=== PATIENT | female | born 1955 | race Caucasian/White ===

== ENCOUNTER 2021-04-22 13:03 | Outpatient (RCR) | payer MEDICARE | END 2021-04-24 | LOC: PT 13:03 | PROVIDERS: ATTEND Physical Medicine & Rehabilitation | DX: M46.1 Sacroiliitis, not elsewhere classified (principal); M25.551 Pain in right hip ==

== ENCOUNTER 2021-05-05 11:00 | Outpatient (RCR) | payer MEDICARE | END 2021-05-25 | LOC: PT 11:00 | PROVIDERS: ATTEND Physical Medicine & Rehabilitation | DX: M46.1 Sacroiliitis, not elsewhere classified (principal); M25.551 Pain in right hip ==

== ENCOUNTER 2022-01-13 00:19 | Emergency (ER) | payer MEDICARE ==
[~2022-01-13] VITALS: Ht 160 cm; Wt 86.6 kg
[2022-01-13] MEDS ORDERED: AMLODIPINE BESYLATE 5 MG TAB PO ONE (00:45)
[2022-01-13] MEDS ORDERED: AMLODIPINE BESYLATE 5 MG TAB ONE (00:50)
[2022-01-13] MEDS ORDERED: AMLODIPINE BESYL5 MG PO (00:52)
== END 2022-01-13 01:11 | disposition home or self-care (01) ==
LOC: ER 00:33
DX: I10 Essential (primary) hypertension (principal); R51.9 Headache, unspecified; E78.5 Hyperlipidemia, unspecified
CPT/HCPCS: 99283